=== PATIENT | female | born 1945 | race Caucasian/White ===

== ENCOUNTER 2017-07-05 22:14 | Inpatient (IN) | payer MEDICARE, MEDICAID ==
[~2017-07-05] VITALS: Ht 160 cm; Wt 48.8 kg
[~2017-07-05 22:14] MED LIST: ADV50250 IH; ALBU8.5H4 IH; AMIO200T57 PO; BENZ-49; CLON-286 PO; DEXL60CA3 PO; DILT240C PO; FURO-150 PO; HYDR-3972 PO; IPRA3AMP9 NEB; LIDO700A32 TOP; MUPI22OI30 TP; OXYB10TA PO; POTA10TA15 PO; RIVA20TA PO
[2017-07-05 22:51] LABS: BASOPHILS % (AUTO) 0 % (0-1); EOSINOPHILS # (AUTO) 0.4 X10'3 (0-0.9); EOSINOPHILS % (AUTO) 1.2 % (0-6); HEMATOCRIT 32.7 % (35.0-45.0); HEMOGLOBIN 10.4 g/dl (12.0-16.0); LYMPHOCYTES # (AUTO) 1.4 X10'3 (1.1-4.8); LYMPHOCYTES % (AUTO) 4.8 % (21-51); MEAN CORPUSCULAR HEMOGLOBIN 23.1 PG (27.0-31.0); MEAN CORPUSCULAR HGB CONC 31.7 % (33.0-36.5); MEAN CORPUSCULAR VOLUME 72.9 FL (78-98); MEAN PLATELET VOLUME 8.3 FL (7.4-10.4); MONOCYTES # (AUTO) 1.7 X10'3 (0-0.9); MONOCYTES % (AUTO) 5.8 % (2-12); NEUTROPHILS % (AUTO) 88.2 % (42-75); PLATELET COUNT 363 X10'3 (140-440); RED BLOOD COUNT 4.49 X10'6 (4.20-5.60); RED CELL DISTRIBUTION WIDTH 19.4 % (11.5-14.5)
[2017-07-05 23:06] LABS: INR 1.7 INR; PARTIAL THROMBOPLASTIN TIME 47 SECONDS (22-32)
[2017-07-05 23:08] LABS: WHITE BLOOD COUNT 29.5 X10'3 (4.5-11.0)
[2017-07-05 23:13] LABS: ALANINE AMINOTRANSFERASE 52 U/L (12-78); ALBUMIN 3.1 G/DL (3.4-5.0); ALBUMIN/GLOBULIN RATIO 0.7 (1.1-1.5); ALKALINE PHOSPHATASE 123 IU/L (46-116); ANION GAP 10 (8-16); ASPARTATE AMINO TRANSFERASE 61 U/L (10-37); BILIRUBIN,TOTAL 0.6 MG/DL (0.1-1.0); BLOOD UREA NITROGEN 25 MG/DL (7-18); BUN/CREATININE RATIO 26.3 (6.6-38.0); CALCIUM 9.2 MG/DL (8.5-10.1); CHLORIDE 100 MMOL/L (99-107); CREATININE 0.95 MG/DL (0.40-0.90); POTASSIUM 3.8 MMOL/L (3.5-5.1); SODIUM 137 MMOL/L (135-145); TOTAL CARBON DIOXIDE 27.5 MMOL/L (24-32); TOTAL PROTEIN 7.6 G/DL (6.4-8.2); eGFR 58 ML/MIN
[2017-07-05] MEDS ORDERED: dexamethasone sod phosphate 10mg/ml inj IV STA (23:13)
[2017-07-05] MEDS ORDERED: ipratropium/albuterol 3ml nebule NEB ONE (23:15)
[2017-07-05 23:18] LABS: TOTAL CELLS COUNTED 100
[2017-07-05 23:20] LABS: PLATELET ESTIMATE NORMAL
[2017-07-05 23:21] LABS: ANISOCYTOSIS 2+; HYPOCHROMASIA 1+; MICROCYTOSIS 1+; POLYCHROMASIA 1+
[2017-07-05 23:36] LABS: GLUCOSE 176 MG/DL (70-104)
[2017-07-05] MEDS ORDERED: acetaminophen 325mg tablet PO ONE (23:50)
[2017-07-05] MEDS ORDERED: azithromycin 250mg tablet PO ONE (23:50)
[2017-07-05] MEDS ORDERED: normal saline 1000ML IV soln IV ONE (23:50)
[2017-07-05] MEDS ORDERED: CefTRIAXone 2gm/D5W 50ml 50 ML IV ONE (23:50)
[2017-07-05 23:53] LABS: MAGNESIUM 1.8 MG/DL (1.5-2.4)
[2017-07-06] MEDS ORDERED: clonazePAM 1mg tablet PO ONE (00:20)
[2017-07-06] MEDS ORDERED: HYDROcodone/acetaminophen 5mg/325mg tablet PO PRN (00:20)
[2017-07-06] MEDS ORDERED: acetaminophen 325mg tablet PO PRN ×2 (00:20)
[2017-07-06] MEDS ORDERED: bisacodyl 10mg suppository rectal RC PRN (00:20)
[2017-07-06] MEDS ORDERED: mag hydrox/Alum hydrox/simeth 30ml oral suspension PO PRN (00:20)
[2017-07-06] MEDS ORDERED: ondansetron/PF 4mg/2ml inj IV PRN (00:20)
[2017-07-06 02:10] VITALS: BP 155/69
[2017-07-06 07:24] VITALS: BP 112/42
[2017-07-06] MEDS ORDERED: clonazePAM 1mg tablet PO SCH (08:00)
[2017-07-06] MEDS ORDERED: ALBUTEROL IH PRN (09:20)
[2017-07-06] MEDS: methylPREDNISolone sod succ 125mg/2ml vial IV SCH ×2 (09:37→16:08)
[2017-07-06] MEDS: rivaroxaban 20mg tablet PO SCH (09:37)
[2017-07-06] MEDS: docusate sod 100mg capsule PO SCH ×2 (09:37→20:14)
[2017-07-06] MEDS: diltiazem CD 120mg capsule (once-daily) PO SCH (09:37)
[2017-07-06] MEDS: clonazePAM 1mg tablet PO SCH ×2 (09:38→20:00)
[2017-07-06] MEDS: oxybutynin 5mg tablet PO SCH ×2 (09:38→20:14)
[2017-07-06] MEDS: amiodarone 200mg tablet PO SCH ×3 (09:38→20:14)
[2017-07-06] MEDS: HYDROcodone/acetaminophen 10/325mg tab PO PRN ×2 (09:44→16:08)
[2017-07-06 11:07] VITALS: BP 129/54
[2017-07-06] MEDS: nicotine 21mg patch - 24 hr TD SCH (11:18)
[2017-07-06] MEDS: Protein Smoothie (high protein) 240ml (8oz) cup PO SCH (17:00)
[2017-07-06] MEDS ORDERED: rivaroxaban 20mg tablet PO SCH (18:00)
[2017-07-06] MEDS: clonazePAM 1mg tablet PO PRN (18:30)
[2017-07-06 19:00] VITALS: BP 134/60
[2017-07-06] MEDS: ipratropium/albuterol 3ml nebule NEB PRN (19:47)
[2017-07-06] MEDS: lactobacillus rhamnosus 10,000 MMU CELLS/CAPSULE PO SCH (20:14)
[2017-07-06] MEDS: azithromycin 250mg tablet PO SCH (21:06)
[2017-07-06] MEDS: CefTRIAXone/D5W-Rocephin 1gm 50 ML IV SCH (21:07)
[2017-07-07] VITALS: BP 125/60
[2017-07-07] MEDS: methylPREDNISolone sod succ 125mg/2ml vial IV SCH ×4 (00:04→23:50)
[2017-07-07] MEDS: HYDROcodone/acetaminophen 10/325mg tab PO PRN ×6 (00:31→23:54)
[2017-07-07 05:12] LABS: BASOPHILS % (AUTO) 0 % (0-1); EOSINOPHILS % (AUTO) 0 % (0-6); HEMATOCRIT 28.7 % (35.0-45.0); LYMPHOCYTES # (AUTO) 0.7 X10'3 (1.1-4.8); LYMPHOCYTES % (AUTO) 3.9 % (21-51); MEAN CORPUSCULAR HGB CONC 31.4 % (33.0-36.5); MEAN CORPUSCULAR VOLUME 73.5 FL (78-98); MEAN PLATELET VOLUME 8.4 FL (7.4-10.4); MONOCYTES # (AUTO) 0.4 X10'3 (0-0.9); MONOCYTES % (AUTO) 2.3 % (2-12); NEUTROPHILS # (AUTO) 15.6 X10'3 (1.8-7.7); NEUTROPHILS % (AUTO) 93.8 % (42-75); PLATELET COUNT 326 X10'3 (140-440); RED BLOOD COUNT 3.91 X10'6 (4.20-5.60); RED CELL DISTRIBUTION WIDTH 19.3 % (11.5-14.5); WHITE BLOOD COUNT 16.6 X10'3 (4.5-11.0)
[2017-07-07 05:45] LABS: ALBUMIN 2.4 G/DL (3.4-5.0); ANION GAP 7 (8-16); BLOOD UREA NITROGEN 21 MG/DL (7-18); BUN/CREATININE RATIO 28.4 (6.6-38.0); CALCIUM 9.1 MG/DL (8.5-10.1); CHLORIDE 107 MMOL/L (99-107); CREATININE 0.74 MG/DL (0.40-0.90); POTASSIUM 4.2 MMOL/L (3.5-5.1); SODIUM 141 MMOL/L (135-145); TOTAL CARBON DIOXIDE 26.7 MMOL/L (24-32); eGFR 78 ML/MIN
[2017-07-07 05:50] LABS: GLUCOSE 159 MG/DL (70-104)
[2017-07-07 07:19] VITALS: BP 139/57
[2017-07-07] MEDS ORDERED: non-formulary drug (Diltiazem HCl (Diltiazem 24Hr ER) 1 CAP) PO SCH (08:00)
[2017-07-07] MEDS ORDERED: mupirocin 2% ointment 22GM TP SCH (08:00)
[2017-07-07] MEDS ORDERED: OXYBUTYNIN CHLORIDE 10 MG PO SCH (08:00)
[2017-07-07] MEDS: amiodarone 200mg tablet PO SCH ×3 (08:00→19:59)
[2017-07-07] MEDS: pantoprazole 40mg Tablet.DR PO SCH (08:12)
[2017-07-07] MEDS: diltiazem CD 120mg capsule (once-daily) PO SCH (08:13)
[2017-07-07] MEDS: oxybutynin 5mg tablet PO SCH ×2 (08:14→20:00)
[2017-07-07] MEDS: lactobacillus rhamnosus 10,000 MMU CELLS/CAPSULE PO SCH ×2 (08:14→19:59)
[2017-07-07] MEDS: rivaroxaban 20mg tablet PO SCH (08:14)
[2017-07-07] MEDS: docusate sod 100mg capsule PO SCH ×2 (08:14→19:59)
[2017-07-07] MEDS: furosemide 20MG tablet PO SCH (08:14)
[2017-07-07] MEDS: clonazePAM 1mg tablet PO SCH (08:15)
[2017-07-07] MEDS: nicotine 21mg patch - 24 hr TD SCH (08:16)
[2017-07-07] MEDS: ipratropium/albuterol 3ml nebule NEB PRN ×2 (08:30→15:56)
[2017-07-07 11:00] VITALS: BP 121/46
[2017-07-07] MEDS ORDERED: glucagon, human recombinant 1mg kit SUBCUT PRN (12:05)
[2017-07-07] MEDS ORDERED: MESSAGE TO PHARMACY PO ONE (12:05)
[2017-07-07] MEDS ORDERED: dextrose ORAL solution 15 GM/59 ML bottle PO PRN ×2 (12:05)
[2017-07-07] MEDS ORDERED: dextrose 50%-water 50ml dispensing syringe IV PRN ×2 (12:05)
[2017-07-07 13:11] LABS: HEMOGLOBIN A1C 6.1 % (4.5-6.2)
[2017-07-07] MEDS: Protein Smoothie (high protein) 240ml (8oz) cup PO SCH (17:00)
[2017-07-07] MEDS: insulin Lispro (HumaLOG) vial - multi-dose SQ SCH (18:50)
[2017-07-07 19:00] VITALS: BP 139/57
[2017-07-07] MEDS: azithromycin 250mg tablet PO SCH (21:12)
[2017-07-07] MEDS: CefTRIAXone/D5W-Rocephin 1gm 50 ML IV SCH (21:12)
[2017-07-07] MEDS: clonazePAM 1mg tablet PO PRN (21:15)
[2017-07-07] MEDS: insulin glargine (Lantus) pen - multi-dose SQ SCH (21:23)
[2017-07-08] VITALS: BP 139/52
[2017-07-08] MEDS: HYDROcodone/acetaminophen 10/325mg tab PO PRN ×5 (03:39→23:51)
[2017-07-08 05:23] LABS: BASOPHILS % (AUTO) 0 % (0-1); EOSINOPHILS # (AUTO) 0.2 X10'3 (0-0.9); EOSINOPHILS % (AUTO) 1.5 % (0-6); HEMATOCRIT 28.6 % (35.0-45.0); LYMPHOCYTES # (AUTO) 0.7 X10'3 (1.1-4.8); LYMPHOCYTES % (AUTO) 4.5 % (21-51); MEAN CORPUSCULAR HGB CONC 31.6 % (33.0-36.5); MEAN CORPUSCULAR VOLUME 72.9 FL (78-98); MEAN PLATELET VOLUME 8.1 FL (7.4-10.4); MONOCYTES # (AUTO) 0.3 X10'3 (0-0.9); MONOCYTES % (AUTO) 1.6 % (2-12); NEUTROPHILS # (AUTO) 15.1 X10'3 (1.8-7.7); NEUTROPHILS % (AUTO) 92.4 % (42-75); PLATELET COUNT 354 X10'3 (140-440); RED BLOOD COUNT 3.92 X10'6 (4.20-5.60); RED CELL DISTRIBUTION WIDTH 19.5 % (11.5-14.5); WHITE BLOOD COUNT 16.3 X10'3 (4.5-11.0)
[2017-07-08 05:30] LABS: ALBUMIN 2.3 G/DL (3.4-5.0); ANION GAP 8 (8-16); BLOOD UREA NITROGEN 25 MG/DL (7-18); BUN/CREATININE RATIO 32.5 (6.6-38.0); CALCIUM 9.2 MG/DL (8.5-10.1); CHLORIDE 105 MMOL/L (99-107); CREATININE 0.77 MG/DL (0.40-0.90); POTASSIUM 4.3 MMOL/L (3.5-5.1); SODIUM 140 MMOL/L (135-145); TOTAL CARBON DIOXIDE 27.1 MMOL/L (24-32); eGFR 74 ML/MIN
[2017-07-08 05:31] LABS: GLUCOSE 138 MG/DL (70-104)
[2017-07-08 07:09] VITALS: BP 134/90
[2017-07-08] MEDS: pantoprazole 40mg Tablet.DR PO SCH (07:50)
[2017-07-08] MEDS: lactobacillus rhamnosus 10,000 MMU CELLS/CAPSULE PO SCH ×2 (07:50→20:18)
[2017-07-08] MEDS: ipratropium/albuterol 3ml nebule NEB PRN ×3 (07:50→19:22)
[2017-07-08] MEDS: docusate sod 100mg capsule PO SCH ×2 (07:50→20:19)
[2017-07-08] MEDS: diltiazem CD 120mg capsule (once-daily) PO SCH (07:50)
[2017-07-08] MEDS: oxybutynin 5mg tablet PO SCH ×2 (07:51→20:19)
[2017-07-08] MEDS: furosemide 20MG tablet PO SCH (07:51)
[2017-07-08] MEDS: amiodarone 200mg tablet PO SCH ×2 (07:51→20:19)
[2017-07-08] MEDS: rivaroxaban 20mg tablet PO SCH (07:51)
[2017-07-08] MEDS: nicotine 21mg patch - 24 hr TD SCH (07:52)
[2017-07-08] MEDS: methylPREDNISolone sod succ 125mg/2ml vial IV SCH ×3 (07:52→23:46)
[2017-07-08] MEDS: insulin Lispro (HumaLOG) vial - multi-dose SQ SCH ×3 (08:55→18:57)
[2017-07-08 12:04] VITALS: BP 129/50
[2017-07-08] MEDS: magnesium hydroxide 30ml (MOM) UD suspension PO PRN (16:49)
[2017-07-08] MEDS: Protein Smoothie (high protein) 240ml (8oz) cup PO SCH (17:00)
[2017-07-08 19:00] VITALS: BP 116/47
[2017-07-08] MEDS: CefTRIAXone/D5W-Rocephin 1gm 50 ML IV SCH (20:56)
[2017-07-08] MEDS: azithromycin 250mg tablet PO SCH (20:56)
[2017-07-08] MEDS: insulin glargine (Lantus) pen - multi-dose SQ SCH (21:01)
[2017-07-09] VITALS: BP 111/55
[2017-07-09] MEDS: HYDROcodone/acetaminophen 10/325mg tab PO PRN ×5 (04:45→23:18)
[2017-07-09 06:12] LABS: BASOPHILS % (AUTO) 0.1 % (0-1); EOSINOPHILS # (AUTO) 0.2 X10'3 (0-0.9); EOSINOPHILS % (AUTO) 1.1 % (0-6); HEMATOCRIT 29.8 % (35.0-45.0); HEMOGLOBIN 9.3 g/dl (12.0-16.0); LYMPHOCYTES # (AUTO) 0.7 X10'3 (1.1-4.8); LYMPHOCYTES % (AUTO) 4.7 % (21-51); MEAN CORPUSCULAR HEMOGLOBIN 22.7 PG (27.0-31.0); MEAN CORPUSCULAR HGB CONC 31.3 % (33.0-36.5); MEAN CORPUSCULAR VOLUME 72.4 FL (78-98); MONOCYTES # (AUTO) 0.4 X10'3 (0-0.9); MONOCYTES % (AUTO) 2.8 % (2-12); NEUTROPHILS # (AUTO) 13.4 X10'3 (1.8-7.7); NEUTROPHILS % (AUTO) 91.3 % (42-75); PLATELET COUNT 353 X10'3 (140-440); RED BLOOD COUNT 4.12 X10'6 (4.20-5.60); RED CELL DISTRIBUTION WIDTH 19.2 % (11.5-14.5); WHITE BLOOD COUNT 14.7 X10'3 (4.5-11.0)
[2017-07-09 06:21] LABS: ALBUMIN 2.4 G/DL (3.4-5.0); ANION GAP 8 (8-16); BLOOD UREA NITROGEN 29 MG/DL (7-18); BUN/CREATININE RATIO 37.7 (6.6-38.0); CHLORIDE 104 MMOL/L (99-107); CREATININE 0.77 MG/DL (0.40-0.90); POTASSIUM 4.3 MMOL/L (3.5-5.1); SODIUM 140 MMOL/L (135-145); TOTAL CARBON DIOXIDE 28.2 MMOL/L (24-32); eGFR 74 ML/MIN
[2017-07-09 06:22] LABS: GLUCOSE 130 MG/DL (70-104)
[2017-07-09 08:00] VITALS: BP 126/51
[2017-07-09] MEDS: insulin Lispro (HumaLOG) vial - multi-dose SQ SCH ×3 (08:57→18:59)
[2017-07-09] MEDS: nicotine 21mg patch - 24 hr TD SCH (09:00)
[2017-07-09] MEDS: magnesium hydroxide 30ml (MOM) UD suspension PO PRN (09:00)
[2017-07-09] MEDS: methylPREDNISolone sod succ 125mg/2ml vial IV SCH ×2 (09:02→16:32)
[2017-07-09] MEDS: diltiazem CD 120mg capsule (once-daily) PO SCH (09:04)
[2017-07-09] MEDS: amiodarone 200mg tablet PO SCH ×2 (09:04→20:01)
[2017-07-09] MEDS: oxybutynin 5mg tablet PO SCH ×2 (09:04→20:03)
[2017-07-09] MEDS: rivaroxaban 20mg tablet PO SCH (09:04)
[2017-07-09] MEDS: furosemide 20MG tablet PO SCH (09:04)
[2017-07-09] MEDS: lactobacillus rhamnosus 10,000 MMU CELLS/CAPSULE PO SCH ×2 (09:04→20:01)
[2017-07-09] MEDS: pantoprazole 40mg Tablet.DR PO SCH (09:05)
[2017-07-09] MEDS: docusate sod 100mg capsule PO SCH ×2 (09:08→19:59)
[2017-07-09] MEDS: ipratropium/albuterol 3ml nebule NEB PRN ×2 (09:25→15:21)
[2017-07-09 11:28] VITALS: BP 147/60
[2017-07-09 12:27] VITALS: BP 133/59
[2017-07-09] MEDS: Protein Smoothie (high protein) 240ml (8oz) cup PO SCH (17:49)
[2017-07-09 19:00] VITALS: BP 141/53
[2017-07-09] MEDS: azithromycin 250mg tablet PO SCH (20:01)
[2017-07-09] MEDS: CefTRIAXone/D5W-Rocephin 1gm 50 ML IV SCH (20:03)
[2017-07-09] MEDS ORDERED: bisacodyl 10mg suppository rectal RC PRN (21:00)
[2017-07-09] MEDS: insulin glargine (Lantus) pen - multi-dose SQ SCH (21:38)
[2017-07-09] MEDS: clonazePAM 1mg tablet PO PRN (23:18)
[2017-07-09] MEDS: methylPREDNISolone sod succ/PF 40mg inj. IV SCH (23:19)
[2017-07-09 23:33] VITALS: BP 169/65
[2017-07-10 03:00] LABS: CLARITY,URINE CLOUDY (Clear); GLUCOSE, URINE NEGATIVE (Neg); KETONES,URINE NEGATIVE (Neg); LEUKOCYTE ESTERASE ,URINE SMALL (Neg); NITRITES, URINE NEGATIVE (Neg); OCCULT BLOOD,URINE LARGE (Neg); PH,URINE 5.5 (4.8-8.0); PROTEIN,URINE 30 mg/dl (Neg); UROBILINOGEN,URINE 0.2 E.U/dL (0.2-1.0)
[2017-07-10 03:05] LABS: COLOR,URINE Pink (Yellow); UA COLLECTION TYPE FOLEY CATH
[2017-07-10 03:08] LABS: RBC,URINE TNTC /HPF (0-2)
[2017-07-10 03:09] LABS: BACTERIA,URINE FEW /HPF (Neg); SQUAMOUS EPITHELIAL CELL,UR FEW /LPF (FEW); YEAST FEW /HPF (NEGATIVE)
[2017-07-10] MEDS: HYDROcodone/acetaminophen 10/325mg tab PO PRN ×4 (03:42→22:04)
[2017-07-10 05:16] LABS: BASOPHILS % (AUTO) 0 % (0-1); EOSINOPHILS # (AUTO) 0.1 X10'3 (0-0.9); EOSINOPHILS % (AUTO) 0.6 % (0-6); HEMATOCRIT 31.4 % (35.0-45.0); HEMOGLOBIN 9.9 g/dl (12.0-16.0); LYMPHOCYTES # (AUTO) 1.1 X10'3 (1.1-4.8); LYMPHOCYTES % (AUTO) 6.1 % (21-51); MEAN CORPUSCULAR HEMOGLOBIN 22.9 PG (27.0-31.0); MEAN CORPUSCULAR HGB CONC 31.4 % (33.0-36.5); MEAN CORPUSCULAR VOLUME 72.8 FL (78-98); MEAN PLATELET VOLUME 8.2 FL (7.4-10.4); MONOCYTES # (AUTO) 0.6 X10'3 (0-0.9); MONOCYTES % (AUTO) 3.2 % (2-12); NEUTROPHILS # (AUTO) 16.7 X10'3 (1.8-7.7); NEUTROPHILS % (AUTO) 90.1 % (42-75); PLATELET COUNT 351 X10'3 (140-440); RED BLOOD COUNT 4.31 X10'6 (4.20-5.60); RED CELL DISTRIBUTION WIDTH 19.3 % (11.5-14.5); WHITE BLOOD COUNT 18.5 X10'3 (4.5-11.0)
[2017-07-10 06:02] LABS: ALBUMIN 2.3 G/DL (3.4-5.0); ANION GAP 5 (8-16); BLOOD UREA NITROGEN 36 MG/DL (7-18); BUN/CREATININE RATIO 41.4 (6.6-38.0); CALCIUM 8.9 MG/DL (8.5-10.1); CHLORIDE 104 MMOL/L (99-107); CREATININE 0.87 MG/DL (0.40-0.90); POTASSIUM 4.3 MMOL/L (3.5-5.1); SODIUM 141 MMOL/L (135-145); TOTAL CARBON DIOXIDE 31.6 MMOL/L (24-32); eGFR 64 ML/MIN
[2017-07-10 06:04] LABS: GLUCOSE 108 MG/DL (70-104)
[2017-07-10] MEDS: methylPREDNISolone sod succ/PF 40mg inj. IV SCH ×2 (06:59→19:43)
[2017-07-10 07:00] VITALS: BP 145/57
[2017-07-10] MEDS: amiodarone 200mg tablet PO SCH ×2 (07:00→19:42)
[2017-07-10] MEDS: pantoprazole 40mg Tablet.DR PO SCH (07:00)
[2017-07-10] MEDS: lactobacillus rhamnosus 10,000 MMU CELLS/CAPSULE PO SCH ×2 (07:01→19:42)
[2017-07-10] MEDS: furosemide 20MG tablet PO SCH (07:01)
[2017-07-10] MEDS: rivaroxaban 20mg tablet PO SCH (07:01)
[2017-07-10] MEDS: docusate sod 100mg capsule PO SCH ×2 (07:01→19:43)
[2017-07-10] MEDS: oxybutynin 5mg tablet PO SCH ×2 (07:01→19:43)
[2017-07-10] MEDS: diltiazem CD 120mg capsule (once-daily) PO SCH (07:02)
[2017-07-10] MEDS: nicotine 21mg patch - 24 hr TD SCH (07:03)
[2017-07-10] MEDS: insulin Lispro (HumaLOG) vial - multi-dose SQ SCH ×2 (08:39→13:27)
[2017-07-10] MEDS: ipratropium/albuterol 3ml nebule NEB PRN (08:47)
[2017-07-10 11:24] VITALS: BP 122/38
[2017-07-10 11:35] VITALS: BP 123/60
[2017-07-10] MEDS: ferrous sulfate 325mg tablet PO SCH ×2 (13:27→17:30)
[2017-07-10] MEDS: Protein Smoothie (high protein) 240ml (8oz) cup PO SCH (17:25)
[2017-07-10 19:00] VITALS: BP 127/97
[2017-07-10] MEDS: azithromycin 250mg tablet PO SCH (22:05)
[2017-07-10] MEDS: CefTRIAXone/D5W-Rocephin 1gm 50 ML IV SCH (22:05)
[2017-07-10] MEDS: clonazePAM 1mg tablet PO PRN (22:22)
[2017-07-10] MEDS: insulin glargine (Lantus) pen - multi-dose SQ SCH (22:29)
[2017-07-10 23:59] VITALS: BP 130/57
[2017-07-11] MEDS: HYDROcodone/acetaminophen 10/325mg tab PO PRN ×2 (02:48→09:23)
[2017-07-11 05:23] LABS: BASOPHILS % (AUTO) 0.1 % (0-1); EOSINOPHILS # (AUTO) 0.1 X10'3 (0-0.9); EOSINOPHILS % (AUTO) 0.7 % (0-6); HEMOGLOBIN 9.6 g/dl (12.0-16.0); LYMPHOCYTES % (AUTO) 5.7 % (21-51); MEAN CORPUSCULAR HEMOGLOBIN 22.6 PG (27.0-31.0); MEAN CORPUSCULAR VOLUME 73.1 FL (78-98); MEAN PLATELET VOLUME 8.3 FL (7.4-10.4); MONOCYTES # (AUTO) 0.4 X10'3 (0-0.9); MONOCYTES % (AUTO) 2.5 % (2-12); NEUTROPHILS # (AUTO) 16.4 X10'3 (1.8-7.7); PLATELET COUNT 325 X10'3 (140-440); RED BLOOD COUNT 4.25 X10'6 (4.20-5.60); RED CELL DISTRIBUTION WIDTH 19.5 % (11.5-14.5)
[2017-07-11 05:57] LABS: ALBUMIN 2.2 G/DL (3.4-5.0); ANION GAP 4 (8-16); BLOOD UREA NITROGEN 36 MG/DL (7-18); BUN/CREATININE RATIO 39.1 (6.6-38.0); CALCIUM 8.8 MG/DL (8.5-10.1); CHLORIDE 103 MMOL/L (99-107); CREATININE 0.92 MG/DL (0.40-0.90); POTASSIUM 4.9 MMOL/L (3.5-5.1); SODIUM 141 MMOL/L (135-145); TOTAL CARBON DIOXIDE 34.2 MMOL/L (24-32); eGFR 60 ML/MIN
[2017-07-11 05:59] LABS: GLUCOSE 111 MG/DL (70-104)
[2017-07-11] MEDS: ipratropium/albuterol 3ml nebule NEB PRN (07:15)
[2017-07-11 08:00] VITALS: BP 116/45
[2017-07-11] MEDS: nicotine 21mg patch - 24 hr TD SCH (09:22)
[2017-07-11] MEDS: furosemide 20MG tablet PO SCH (09:23)
[2017-07-11] MEDS: methylPREDNISolone sod succ/PF 40mg inj. IV SCH (09:23)
[2017-07-11] MEDS: docusate sod 100mg capsule PO SCH (09:23)
[2017-07-11] MEDS: lactobacillus rhamnosus 10,000 MMU CELLS/CAPSULE PO SCH (09:23)
[2017-07-11] MEDS: ferrous sulfate 325mg tablet PO SCH ×2 (09:23→12:36)
[2017-07-11] MEDS: amiodarone 200mg tablet PO SCH (09:23)
[2017-07-11] MEDS: rivaroxaban 20mg tablet PO SCH (09:24)
[2017-07-11] MEDS: pantoprazole 40mg Tablet.DR PO SCH (09:24)
[2017-07-11] MEDS: diltiazem CD 120mg capsule (once-daily) PO SCH (09:24)
[2017-07-11] MEDS: Protein Smoothie (high protein) 240ml (8oz) cup PO SCH (09:24)
[2017-07-11] MEDS: oxybutynin 5mg tablet PO SCH (09:24)
[2017-07-11] MEDS: insulin Lispro (HumaLOG) vial - multi-dose SQ SCH (10:26)
[2017-07-11 11:00] VITALS: BP 131/71
[2017-07-11] MEDS ORDERED: PRED10TA23 PO (11:04)
[2017-07-11] MEDS ORDERED: LEVO500T2 PO (11:04)
[2017-07-11] MEDS ORDERED: NICO-687 TOP (14:39)
== END 2017-07-11 15:10 | disposition home or self-care (01) | DRG 871 ==
LOC: ER 22:15 → SUR 3N 07-06 00:20 → CMPBEDREQ 07-09 19:48
PROVIDERS: ADMIT Family Medicine; ATTEND Family Medicine
DX: A41.9 Sepsis, unspecified organism (principal); J14 Pneumonia due to Hemophilus influenzae; J96.21 Acute and chronic respiratory failure with hypoxia; I11.0 Hypertensive heart disease with heart failure; I48.2 Chronic atrial fibrillation; I50.9 Heart failure, unspecified; E11.65 Type 2 diabetes mellitus with hyperglycemia; J44.0 Chronic obstructive pulmonary disease with (acute) lower respiratory infection; J44.1 Chronic obstructive pulmonary disease with (acute) exacerbation; Z68.1 Body mass index [BMI] 19.9 or less, adult; D64.9 Anemia, unspecified; T38.0X5A Adverse effect of glucocorticoids and synthetic analogues, initial encounter; F17.210 Nicotine dependence, cigarettes, uncomplicated; N28.9 Disorder of kidney and ureter, unspecified; Y92.238 Other place in hospital as the place of occurrence of the external cause; Z86.73 Personal history of transient ischemic attack (TIA), and cerebral infarction without residual deficits; Z87.11 Personal history of peptic ulcer disease; Z90.710 Acquired absence of both cervix and uterus; Z91.041 Radiographic dye allergy status; Z88.0 Allergy status to penicillin; Z91.048 Other nonmedicinal substance allergy status
CPT/HCPCS: 36415; 71045; 80048; 80053; 81001; 82948; 83036; 83605; 83735; 83880; 84145; 84439; 84443; 84484; 85025; 85610; 85730; 87040; 87070; 87077; 87088; 87185; 93005; 94640; 94760; 96360; 97116; 97162; 97530; 99291; A4315; A4353; A6212; A6213; A6258; J0696; J1100; J1815; J2920; J2930

== ENCOUNTER 2017-08-13 09:30 | Outpatient (CLI) | payer MEDICARE, MEDICAID ==
[2017-08-13] MEDS ORDERED: silver sulfadiazine cream 50gm TP ONE ×2 (11:38→12:13)
== END 2017-08-13 12:35 | disposition home or self-care (01) ==
LOC: WOUND CARE 09:30
PROVIDERS: ATTEND Surgery
DX: E11.622 Type 2 diabetes mellitus with other skin ulcer (principal); L97.821 Non-pressure chronic ulcer of other part of left lower leg limited to breakdown of skin; L97.811 Non-pressure chronic ulcer of other part of right lower leg limited to breakdown of skin; E11.65 Type 2 diabetes mellitus with hyperglycemia; I77.1 Stricture of artery; J44.1 Chronic obstructive pulmonary disease with (acute) exacerbation; I25.10 Atherosclerotic heart disease of native coronary artery without angina pectoris; K21.9 Gastro-esophageal reflux disease without esophagitis; I11.0 Hypertensive heart disease with heart failure; I50.9 Heart failure, unspecified; I48.2 Chronic atrial fibrillation; F17.210 Nicotine dependence, cigarettes, uncomplicated; Z86.718 Personal history of other venous thrombosis and embolism; Z90.710 Acquired absence of both cervix and uterus; Z86.711 Personal history of pulmonary embolism; Z86.73 Personal history of transient ischemic attack (TIA), and cerebral infarction without residual deficits
CPT/HCPCS: 99215; A6223

== ENCOUNTER 2018-05-03 08:40 | Day surgery (SDC) | payer MEDICARE, MEDICAID ==
[~2018-05-03 08:40] MED LIST changes: +AMIO200T54 PO; -AMIO200T57 PO
[2018-05-03] MEDS ORDERED: LIDOcaine/PRILOcaine 5gm cream TP ONE (09:37)
--- NOTE | 2018-05-03 12:10 | NUR ---
Patient ambulated independently with a walker. Patient admitted to outpatient wound care clinic for return visit with physician. Dressing removed, wound cleansed and Emla cream applied per order. Patient assessed amd medications and medical history reviewed. Dr. Alberto at bedside accompanied by RN. Wound assessed, time out performed by MD/RN. Wound debrided as detailed in the physician progress/procedure note. Plan of care discussed with patient. Dressings placed per MD orders. Patient instructed on the signs and symptoms of infection and to call the Wound Center if any occur or to go to the ED if we are closed: Increased pain in wound Increase in drainage from the wound Redness in the skin surrounding the wound Bleeding from the wound Temperature of 101 or greater Patient instructed that the weight of their body puts a large amount of pressure on their wounds. This pressure keeps the new tissue from growing and inhibits new blood vessels from forming. Explained that, if they continue to bear weight on a body part that has a wound, the time it takes to heal the wound increases, the wound may get worse or the wound may not heal at all. Patient verbalized understanding of all discharge instructions and plan of care and ambulated independently out to lobby in stable condition with no sign or symptom of distress at time of discharge. Addendum: 05/03/18 at 1213 by Joyce Moses RN Amended: Links added.
== END 2018-05-03 10:44 | disposition home or self-care (01) ==
LOC: WOUND CARE 08:40
PROVIDERS: ATTEND Surgery
DX: E11.622 Type 2 diabetes mellitus with other skin ulcer (principal); L97.822 Non-pressure chronic ulcer of other part of left lower leg with fat layer exposed; I77.1 Stricture of artery; J44.1 Chronic obstructive pulmonary disease with (acute) exacerbation; I25.10 Atherosclerotic heart disease of native coronary artery without angina pectoris; K21.9 Gastro-esophageal reflux disease without esophagitis; I11.0 Hypertensive heart disease with heart failure; I50.9 Heart failure, unspecified; I48.2 Chronic atrial fibrillation; F17.210 Nicotine dependence, cigarettes, uncomplicated; Z86.718 Personal history of other venous thrombosis and embolism; Z90.710 Acquired absence of both cervix and uterus; Z86.711 Personal history of pulmonary embolism; Z86.73 Personal history of transient ischemic attack (TIA), and cerebral infarction without residual deficits
CPT/HCPCS: 87070; 87075; 87077; 87102; 87186; A6021; A6206; A6213

== ENCOUNTER 2018-05-10 10:11 | Day surgery (SDC) | payer MEDICARE, MEDICAID ==
[2018-05-10] MEDS ORDERED: LIDOcaine/PRILOcaine 5gm cream TP ONE (10:25)
--- NOTE | 2018-05-10 14:39 | NUR ---
Patient ambulated independently from [facility] and was admitted to outpatient wound care for physician visit with Fan Alberto MD. Dressing removed, wound cleansed and Emla cream applied per order. Patient assessed for changes in conditions, medications and medical history. Dr. Alberto at bedside accompanied by RN. Wound assessed, time out performed by MD/RN. Wound debrided as detailed in the physician progress/procedure note. Plan of care discussed with patient. Ultra sound performed at bedside. Dressings placed per MD orders. Patient instructed on the signs and symptoms of infection and to call the Wound Center if any occur or to go to the ED if we are closed: Increased pain in wound Increase in drainage from the wound Redness in the skin surrounding the wound Bleeding from the wound Temperature of 101 or greater Patient instructed that the weight of their body puts a large amount of pressure on their wounds. This pressure keeps the new tissue from growing and inhibits new blood vessels from forming. Explained that, if they continue to bear weight on a body part that has a wound, the time it takes to heal the wound increases, the wound may get worse or the wound may not heal at all. Patient verbalized understanding of all discharge instructions and plan of care and ambulated independently out to [facility] in stable condition with no sign or symptom of distress at time of discharge. Addendum: 05/10/18 at 1441 by Joyce Moses RN Amended: Links added.
== END 2018-05-10 12:24 | disposition home or self-care (01) ==
LOC: WOUND CARE 10:11
PROVIDERS: ATTEND Surgery
DX: E11.622 Type 2 diabetes mellitus with other skin ulcer (principal); L97.822 Non-pressure chronic ulcer of other part of left lower leg with fat layer exposed; I77.1 Stricture of artery; J44.1 Chronic obstructive pulmonary disease with (acute) exacerbation; I25.10 Atherosclerotic heart disease of native coronary artery without angina pectoris; K21.9 Gastro-esophageal reflux disease without esophagitis; I11.0 Hypertensive heart disease with heart failure; I50.9 Heart failure, unspecified; I48.2 Chronic atrial fibrillation; F17.210 Nicotine dependence, cigarettes, uncomplicated; Z86.718 Personal history of other venous thrombosis and embolism; Z90.710 Acquired absence of both cervix and uterus; Z86.711 Personal history of pulmonary embolism; Z86.73 Personal history of transient ischemic attack (TIA), and cerebral infarction without residual deficits
CPT/HCPCS: 93922; 93926; 97597; A6222; A6021; A6212; A6446

== ENCOUNTER 2018-05-17 10:30 | Day surgery (SDC) | payer MEDICARE, MEDICAID ==
[~2018-05-17 10:30] MED LIST changes: -BENZ-49; -IPRA3AMP9 NEB; -LIDO700A32 TOP; -MUPI22OI30 TP
[2018-05-17] MEDS ORDERED: LIDOcaine/PRILOcaine 5gm cream TP ONE (11:13)
--- NOTE | 2018-05-17 12:15 | NUR ---
Patient ambulated with walker from [facility] and was admitted to outpatient wound care for physician visit with Fan Alberto MD. Dressing removed, wound cleansed and Emla cream applied per order. Patient assessed for changes in conditions, medications and medical history. 1125 - Dr. Alberto at bedside accompanied by RN. Wound assessed, time out performed by MD/RN. Wound debrided as detailed in the physician progress/procedure note. Plan of care discussed with patient. Dressings placed per MD orders. Patient instructed on the signs and symptoms of infection and to call the Wound Center if any occur or to go to the ED if we are closed: Increased pain in wound Increase in drainage from the wound Redness in the skin surrounding the wound Bleeding from the wound Temperature of 101 or greater Patient instructed that the weight of their body puts a large amount of pressure on their wounds. This pressure keeps the new tissue from growing and inhibits new blood vessels from forming. Explained that, if they continue to bear weight on a body part that has a wound, the time it takes to heal the wound increases, the wound may get worse or the wound may not heal at all. Patient verbalized understanding of all discharge instructions and plan of care and ambulated with walker out to [facility] in stable condition with no sign or symptom of distress at time of discharge.
== END 2018-05-17 11:53 | disposition home or self-care (01) ==
LOC: WOUND CARE 10:30
PROVIDERS: ATTEND Surgery
DX: E11.622 Type 2 diabetes mellitus with other skin ulcer (principal); I70.242 Atherosclerosis of native arteries of left leg with ulceration of calf; L97.221 Non-pressure chronic ulcer of left calf limited to breakdown of skin; L97.822 Non-pressure chronic ulcer of other part of left lower leg with fat layer exposed; I77.1 Stricture of artery; J44.1 Chronic obstructive pulmonary disease with (acute) exacerbation; I25.10 Atherosclerotic heart disease of native coronary artery without angina pectoris; K21.9 Gastro-esophageal reflux disease without esophagitis; I11.0 Hypertensive heart disease with heart failure; I50.9 Heart failure, unspecified; I48.2 Chronic atrial fibrillation; F17.210 Nicotine dependence, cigarettes, uncomplicated; Z86.718 Personal history of other venous thrombosis and embolism; Z90.710 Acquired absence of both cervix and uterus; Z86.711 Personal history of pulmonary embolism; Z86.73 Personal history of transient ischemic attack (TIA), and cerebral infarction without residual deficits
CPT/HCPCS: 97597; A6021; A6206; A6212

== ENCOUNTER 2018-05-24 09:50 | Day surgery (SDC) | payer MEDICARE, MEDICAID ==
[2018-05-24] MEDS ORDERED: LIDOcaine/PRILOcaine 5gm cream TP ONE (10:16)
--- NOTE | 2018-05-24 12:34 | NUR ---
Patient ambulated independently from lobby with a walker. Patient admitted to outpatient wound care for physician visit with Fan Alberto MD. Dressing removed, wound cleansed and Emla cream applied per order. Patient assessed for changes in conditions, medications and medical history. Dr. Alberto at bedside accompanied by RN. Wound assessed, time out performed by MD/RN. Wound debrided as detailed in the physician progress/procedure note. Plan of care discussed with patient. Dressings placed per MD orders. Patient instructed on the signs and symptoms of infection and to call the Wound Center if any occur or to go to the ED if we are closed: Increased pain in wound Increase in drainage from the wound Redness in the skin surrounding the wound Bleeding from the wound Temperature of 101 or greater Patient instructed that the weight of their body puts a large amount of pressure on their wounds. This pressure keeps the new tissue from growing and inhibits new blood vessels from forming. Explained that, if they continue to bear weight on a body part that has a wound, the time it takes to heal the wound increases, the wound may get worse or the wound may not heal at all. Patient verbalized understanding of all discharge instructions and plan of care and ambulated independently out to lobby in stable condition with no sign or symptom of distress at time of discharge. Addendum: 05/24/18 at 1236 by Joyce Moses RN Amended: Links added.
== END 2018-05-24 11:10 | disposition home or self-care (01) ==
LOC: WOUND CARE 09:50
PROVIDERS: ATTEND Surgery
DX: E11.622 Type 2 diabetes mellitus with other skin ulcer (principal); I70.242 Atherosclerosis of native arteries of left leg with ulceration of calf; L97.221 Non-pressure chronic ulcer of left calf limited to breakdown of skin; L97.822 Non-pressure chronic ulcer of other part of left lower leg with fat layer exposed; I77.1 Stricture of artery; J44.1 Chronic obstructive pulmonary disease with (acute) exacerbation; I25.10 Atherosclerotic heart disease of native coronary artery without angina pectoris; K21.9 Gastro-esophageal reflux disease without esophagitis; I11.0 Hypertensive heart disease with heart failure; I50.9 Heart failure, unspecified; I48.2 Chronic atrial fibrillation; F17.210 Nicotine dependence, cigarettes, uncomplicated; Z86.718 Personal history of other venous thrombosis and embolism; Z90.710 Acquired absence of both cervix and uterus; Z86.711 Personal history of pulmonary embolism; Z86.73 Personal history of transient ischemic attack (TIA), and cerebral infarction without residual deficits
CPT/HCPCS: 15271; A6209; A6222; Q4101; A6250; A6446

== ENCOUNTER 2018-05-31 09:15 | Outpatient (CLI) | payer MEDICARE, MEDICAID ==
--- NOTE | 2018-05-31 13:10 | NUR ---
Patient ambulated independently from [facility] and was admitted to outpatient wound care for physician visit with Fan Alberto MD. Dressing removed and wound cleansed. Patient assessed for changes in conditions, medications and medical history. Dr. Alberto at bedside accompanied by RN. Wound assessed and no debridement was done. Plan of care discussed with patient. Dressings placed per MD orders. Patient instructed on the signs and symptoms of infection and to call the Wound Center if any occur or to go to the ED if we are closed: Increased pain in wound Increase in drainage from the wound Redness in the skin surrounding the wound Bleeding from the wound Temperature of 101 or greater Patient instructed that the weight of their body puts a large amount of pressure on their wounds. This pressure keeps the new tissue from growing and inhibits new blood vessels from forming. Explained that, if they continue to bear weight on a body part that has a wound, the time it takes to heal the wound increases, the wound may get worse or the wound may not heal at all. Patient verbalized understanding of all discharge instructions and plan of care and ambulated independently out to [facility] in stable condition with no sign or symptom of distress at time of discharge. Addendum: 05/31/18 at 1312 by Joyce Moses RN Amended: Links added.
== END 2018-05-31 12:05 | disposition home or self-care (01) ==
LOC: WOUND CARE 09:15 → EDSTATUS 10:00 → WOUND CARE 12:05
PROVIDERS: ATTEND Surgery
DX: E11.622 Type 2 diabetes mellitus with other skin ulcer (principal); I70.242 Atherosclerosis of native arteries of left leg with ulceration of calf; L97.221 Non-pressure chronic ulcer of left calf limited to breakdown of skin; L97.822 Non-pressure chronic ulcer of other part of left lower leg with fat layer exposed; I77.1 Stricture of artery; J44.1 Chronic obstructive pulmonary disease with (acute) exacerbation; I25.10 Atherosclerotic heart disease of native coronary artery without angina pectoris; K21.9 Gastro-esophageal reflux disease without esophagitis; I11.0 Hypertensive heart disease with heart failure; I50.9 Heart failure, unspecified; I48.2 Chronic atrial fibrillation; F17.210 Nicotine dependence, cigarettes, uncomplicated; Z86.718 Personal history of other venous thrombosis and embolism; Z90.710 Acquired absence of both cervix and uterus; Z86.711 Personal history of pulmonary embolism; Z86.73 Personal history of transient ischemic attack (TIA), and cerebral infarction without residual deficits
CPT/HCPCS: A6222; G0463; A6213

== ENCOUNTER 2018-06-07 10:05 | Day surgery (SDC) | payer MEDICARE, MEDICAID ==
[2018-06-07] MEDS ORDERED: LIDOcaine/PRILOcaine 5gm cream TP ONE (11:06)
--- NOTE | 2018-06-07 14:42 | NUR ---
Patient ambulated independently from lobby with a walker. Patient admitted to outpatient wound care for physician visit with Fan Alberto MD. Dressing removed, wound cleansed and Emla cream applied per order. Patient assessed for changes in conditions, medications and medical history. Dr. Alberto at bedside accompanied by RN. Wound assessed, time out performed by MD/RN. Wound debrided as detailed in the physician progress/procedure note. Plan of care discussed with patient. Dressings placed per MD orders. Patient instructed on the signs and symptoms of infection and to call the Wound Center if any occur or to go to the ED if we are closed: Increased pain in wound Increase in drainage from the wound Redness in the skin surrounding the wound Bleeding from the wound Temperature of 101 or greater Patient instructed that the weight of their body puts a large amount of pressure on their wounds. This pressure keeps the new tissue from growing and inhibits new blood vessels from forming. Explained that, if they continue to bear weight on a body part that has a wound, the time it takes to heal the wound increases, the wound may get worse or the wound may not heal at all. Patient verbalized understanding of all discharge instructions and plan of care and ambulated independently out to lobby in stable condition with no sign or symptom of distress at time of discharge. Addendum: 06/07/18 at 1450 by Joyce Moses RN Amended: Links added.
== END 2018-06-07 11:59 | disposition home or self-care (01) ==
LOC: WOUND CARE 10:05
PROVIDERS: ATTEND Surgery
DX: E11.622 Type 2 diabetes mellitus with other skin ulcer (principal); I70.242 Atherosclerosis of native arteries of left leg with ulceration of calf; L97.221 Non-pressure chronic ulcer of left calf limited to breakdown of skin; L97.822 Non-pressure chronic ulcer of other part of left lower leg with fat layer exposed; I77.1 Stricture of artery; J44.1 Chronic obstructive pulmonary disease with (acute) exacerbation; I25.10 Atherosclerotic heart disease of native coronary artery without angina pectoris; K21.9 Gastro-esophageal reflux disease without esophagitis; I11.0 Hypertensive heart disease with heart failure; I50.9 Heart failure, unspecified; I48.2 Chronic atrial fibrillation; F17.210 Nicotine dependence, cigarettes, uncomplicated; Z86.718 Personal history of other venous thrombosis and embolism; Z90.710 Acquired absence of both cervix and uterus; Z86.711 Personal history of pulmonary embolism; Z86.73 Personal history of transient ischemic attack (TIA), and cerebral infarction without residual deficits
CPT/HCPCS: 15271; A6209; A6222; Q4101; A6250

== ENCOUNTER 2018-06-18 09:40 | Day surgery (SDC) | payer MEDICARE, MEDICAID ==
[2018-06-18] MEDS ORDERED: LIDOcaine/PRILOcaine 5gm cream TP ONE (10:33)
--- NOTE | 2018-06-18 11:04 | NUR ---
Patient ambulated independently from lobby with a walker. Patient admitted to outpatient wound care for physician visit with Fan Alberto MD. Dressing removed, wound cleansed and lidocaine applied per order. Patient assessed for changes in conditions, medications and medical history. Dr. Alberto at bedside accompanied by RN. Wound assessed, time out performed by MD/RN. Wound debrided as detailed in the physician progress/procedure note. Plan of care discussed with patient. Dressings placed per MD orders. Patient instructed on the signs and symptoms of infection and to call the Wound Center if any occur or to go to the ED if we are closed: Increased pain in wound Increase in drainage from the wound Redness in the skin surrounding the wound Bleeding from the wound Temperature of 101 or greater Patient instructed that the weight of their body puts a large amount of pressure on their wounds. This pressure keeps the new tissue from growing and inhibits new blood vessels from forming. Explained that, if they continue to bear weight on a body part that has a wound, the time it takes to heal the wound increases, the wound may get worse or the wound may not heal at all. Patient verbalized understanding of all discharge instructions and plan of care and ambulated independently out to lobby in stable condition with no sign or symptom of distress at time of discharge. Addendum: 06/18/18 at 1105 by Joyce Moses RN Amended: Links added.
== END 2018-06-18 10:53 | disposition home or self-care (01) ==
LOC: WOUND CARE 09:40
PROVIDERS: ATTEND Surgery
DX: E11.622 Type 2 diabetes mellitus with other skin ulcer (principal); I70.242 Atherosclerosis of native arteries of left leg with ulceration of calf; L97.221 Non-pressure chronic ulcer of left calf limited to breakdown of skin; L97.822 Non-pressure chronic ulcer of other part of left lower leg with fat layer exposed; I77.1 Stricture of artery; J44.1 Chronic obstructive pulmonary disease with (acute) exacerbation; I25.10 Atherosclerotic heart disease of native coronary artery without angina pectoris; K21.9 Gastro-esophageal reflux disease without esophagitis; I11.0 Hypertensive heart disease with heart failure; I50.9 Heart failure, unspecified; I48.2 Chronic atrial fibrillation; F17.210 Nicotine dependence, cigarettes, uncomplicated; Z86.718 Personal history of other venous thrombosis and embolism; Z90.710 Acquired absence of both cervix and uterus; Z86.711 Personal history of pulmonary embolism; Z86.73 Personal history of transient ischemic attack (TIA), and cerebral infarction without residual deficits
CPT/HCPCS: 97597; A6206

== ENCOUNTER 2018-06-24 10:20 | Day surgery (SDC) | payer MEDICARE, MEDICAID ==
[2018-06-24] MEDS ORDERED: LIDOcaine/PRILOcaine 5gm cream TP ONE (10:54)
--- NOTE | 2018-06-24 12:00 | NUR ---
Patient ambulated with walker from [facility] and was admitted to outpatient wound care for physician visit with Fan Alberto MD. Dressing removed, wound cleansed and Emla cream applied per order. Patient assessed for changes in conditions, medications and medical history. 1110 - Dr. Alberto at bedside accompanied by RN. Wound assessed, time out performed by MD/RN. Wound debrided as detailed in the physician progress/procedure note. Plan of care discussed with patient. Dressings placed per MD orders. Patient instructed on the signs and symptoms of infection and to call the Wound Center if any occur or to go to the ED if we are closed: Increased pain in wound Increase in drainage from the wound Redness in the skin surrounding the wound Bleeding from the wound Temperature of 101 or greater Patient instructed that the weight of their body puts a large amount of pressure on their wounds. This pressure keeps the new tissue from growing and inhibits new blood vessels from forming. Explained that, if they continue to bear weight on a body part that has a wound, the time it takes to heal the wound increases, the wound may get worse or the wound may not heal at all. Patient verbalized understanding of all discharge instructions and plan of care and ambulated with walker out to [facility] in stable condition with no sign or symptom of distress at time of discharge.
== END 2018-06-24 11:30 | disposition home or self-care (01) ==
LOC: WOUND CARE 10:20
PROVIDERS: ATTEND Surgery
DX: E11.622 Type 2 diabetes mellitus with other skin ulcer (principal); I70.242 Atherosclerosis of native arteries of left leg with ulceration of calf; L97.221 Non-pressure chronic ulcer of left calf limited to breakdown of skin; L97.822 Non-pressure chronic ulcer of other part of left lower leg with fat layer exposed; I77.1 Stricture of artery; J44.1 Chronic obstructive pulmonary disease with (acute) exacerbation; I25.10 Atherosclerotic heart disease of native coronary artery without angina pectoris; K21.9 Gastro-esophageal reflux disease without esophagitis; I11.0 Hypertensive heart disease with heart failure; I50.9 Heart failure, unspecified; I48.2 Chronic atrial fibrillation; F17.210 Nicotine dependence, cigarettes, uncomplicated; Z86.718 Personal history of other venous thrombosis and embolism; Z90.710 Acquired absence of both cervix and uterus; Z86.711 Personal history of pulmonary embolism; Z86.73 Personal history of transient ischemic attack (TIA), and cerebral infarction without residual deficits
CPT/HCPCS: 97597; A6223; A6446

== ENCOUNTER 2018-07-01 10:09 | Day surgery (SDC) | payer MEDICARE, MEDICAID ==
[2018-07-01] MEDS ORDERED: LIDOcaine/PRILOcaine 5gm cream TP ONE (11:13)
--- NOTE | 2018-07-01 12:15 | NUR ---
Patient with walker independently from [facility] and was admitted to outpatient wound care for physician visit with Fan Alberto MD. Dressing removed, wound cleansed and Emla cream applied per order. Patient assessed for changes in conditions, medications and medical history. 1145 - Dr. Alberto at bedside accompanied by RN. Wound assessed, time out performed by MD/RN. Wound debrided and procedure performed as detailed in the physician progress/procedure note. Plan of care discussed with patient. Dressings placed per MD orders. Patient instructed on the signs and symptoms of infection and to call the Wound Center if any occur or to go to the ED if we are closed: Increased pain in wound Increase in drainage from the wound Redness in the skin surrounding the wound Bleeding from the wound Temperature of 101 or greater Patient instructed that the weight of their body puts a large amount of pressure on their wounds. This pressure keeps the new tissue from growing and inhibits new blood vessels from forming. Explained that, if they continue to bear weight on a body part that has a wound, the time it takes to heal the wound increases, the wound may get worse or the wound may not heal at all. Patient verbalized understanding of all discharge instructions and plan of care and ambulated with walker out to [facility] in stable condition with no sign or symptom of distress at time of discharge.
== END 2018-07-01 12:25 | disposition home or self-care (01) ==
LOC: WOUND CARE 10:09
PROVIDERS: ATTEND Surgery
DX: E11.622 Type 2 diabetes mellitus with other skin ulcer (principal); I70.242 Atherosclerosis of native arteries of left leg with ulceration of calf; L97.221 Non-pressure chronic ulcer of left calf limited to breakdown of skin; L97.822 Non-pressure chronic ulcer of other part of left lower leg with fat layer exposed; I77.1 Stricture of artery; J44.1 Chronic obstructive pulmonary disease with (acute) exacerbation; I25.10 Atherosclerotic heart disease of native coronary artery without angina pectoris; K21.9 Gastro-esophageal reflux disease without esophagitis; I11.0 Hypertensive heart disease with heart failure; I50.9 Heart failure, unspecified; I48.2 Chronic atrial fibrillation; F17.210 Nicotine dependence, cigarettes, uncomplicated; Z86.718 Personal history of other venous thrombosis and embolism; Z90.710 Acquired absence of both cervix and uterus; Z86.711 Personal history of pulmonary embolism; Z86.73 Personal history of transient ischemic attack (TIA), and cerebral infarction without residual deficits
CPT/HCPCS: 15271; 97597; A6209; A6222; Q4101; A6250; A6446

== ENCOUNTER 2018-07-08 10:00 | Outpatient (CLI) | payer MEDICARE, MEDICAID ==
--- NOTE | 2018-07-08 12:00 | NUR ---
Patient ambulated with walker accompanied by caregiver from [facility] and was admitted to outpatient wound care for physician visit with Fan Alberto MD. Dressing removed, wound cleansed and lidocaine applied per order. Patient assessed for changes in conditions, medications and medical history. 1120 - Dr. Alberto at bedside accompanied by RN. Wound assessed by MD, orders written. Plan of care discussed with patient. Dressings placed per MD orders. Patient instructed on the signs and symptoms of infection and to call the Wound Center if any occur or to go to the ED if we are closed: Increased pain in wound Increase in drainage from the wound Redness in the skin surrounding the wound Bleeding from the wound Temperature of 101 or greater Patient instructed that the weight of their body puts a large amount of pressure on their wounds. This pressure keeps the new tissue from growing and inhibits new blood vessels from forming. Explained that, if they continue to bear weight on a body part that has a wound, the time it takes to heal the wound increases, the wound may get worse or the wound may not heal at all. Patient verbalized understanding of all discharge instructions and plan of care and ambulated with walker accompanied by caregiver out to [facility] in stable condition with no sign or symptom of distress at time of discharge.
[2018-07-08] MEDS ORDERED: IBUP-1985 PO (14:55)
== END 2018-07-08 11:50 | disposition home or self-care (01) ==
LOC: WOUND CARE 10:00 → EDSTATUS 10:00 → WOUND CARE 11:50
PROVIDERS: ATTEND Surgery
DX: E11.622 Type 2 diabetes mellitus with other skin ulcer (principal); I70.242 Atherosclerosis of native arteries of left leg with ulceration of calf; L97.221 Non-pressure chronic ulcer of left calf limited to breakdown of skin; L97.822 Non-pressure chronic ulcer of other part of left lower leg with fat layer exposed; I77.1 Stricture of artery; J44.1 Chronic obstructive pulmonary disease with (acute) exacerbation; I25.10 Atherosclerotic heart disease of native coronary artery without angina pectoris; K21.9 Gastro-esophageal reflux disease without esophagitis; I11.0 Hypertensive heart disease with heart failure; I50.9 Heart failure, unspecified; I48.2 Chronic atrial fibrillation; F17.210 Nicotine dependence, cigarettes, uncomplicated; Z86.718 Personal history of other venous thrombosis and embolism; Z90.710 Acquired absence of both cervix and uterus; Z86.711 Personal history of pulmonary embolism; Z86.73 Personal history of transient ischemic attack (TIA), and cerebral infarction without residual deficits
CPT/HCPCS: A6021; A6206; A6446; G0463

== ENCOUNTER 2018-07-15 10:00 | Outpatient (CLI) | payer MEDICARE, MEDICAID ==
[~2018-07-15 10:00] MED LIST changes: +IBUP-1985 PO
[2018-07-15] MEDS ORDERED: LIDOcaine/PRILOcaine 5gm cream TP ONE (10:56)
--- NOTE | 2018-07-15 16:05 | NUR ---
Patient ambulated independently from lobby with a walker. Patient admitted to outpatient wound care for physician visit with Fan Alberto MD. Dressing removed, wound cleansed and Emla cream applied per order. Patient assessed for changes in conditions, medications and medical history. Dr. Alberto at bedside accompanied by RN. Wound assessed and no debridement was done. Plan of care discussed with patient. Dressings placed per MD orders. Patient instructed on the signs and symptoms of infection and to call the Wound Center if any occur or to go to the ED if we are closed: Increased pain in wound Increase in drainage from the wound Redness in the skin surrounding the wound Bleeding from the wound Temperature of 101 or greater Patient instructed that the weight of their body puts a large amount of pressure on their wounds. This pressure keeps the new tissue from growing and inhibits new blood vessels from forming. Explained that, if they continue to bear weight on a body part that has a wound, the time it takes to heal the wound increases, the wound may get worse or the wound may not heal at all. Patient verbalized understanding of all discharge instructions and plan of care and ambulated independently with walker out to lobby in stable condition with no sign or symptom of distress at time of discharge. Addendum: 07/15/18 at 1608 by Joyce Moses RN Amended: Links added.
== END 2018-07-15 11:27 | disposition home or self-care (01) ==
LOC: EDSTATUS 10:00 → WOUND CARE 10:00
PROVIDERS: ATTEND Surgery
DX: E11.622 Type 2 diabetes mellitus with other skin ulcer (principal); I70.242 Atherosclerosis of native arteries of left leg with ulceration of calf; I83.022 Varicose veins of left lower extremity with ulcer of calf; L97.221 Non-pressure chronic ulcer of left calf limited to breakdown of skin; L97.822 Non-pressure chronic ulcer of other part of left lower leg with fat layer exposed; I77.1 Stricture of artery; J44.1 Chronic obstructive pulmonary disease with (acute) exacerbation; I25.10 Atherosclerotic heart disease of native coronary artery without angina pectoris; K21.9 Gastro-esophageal reflux disease without esophagitis; I11.0 Hypertensive heart disease with heart failure; I50.9 Heart failure, unspecified; I48.2 Chronic atrial fibrillation; F17.210 Nicotine dependence, cigarettes, uncomplicated; Z86.718 Personal history of other venous thrombosis and embolism; Z90.710 Acquired absence of both cervix and uterus; Z86.711 Personal history of pulmonary embolism; Z86.73 Personal history of transient ischemic attack (TIA), and cerebral infarction without residual deficits
CPT/HCPCS: A6223; G0463; A6021; A6446

== ENCOUNTER 2018-07-23 10:00 | Day surgery (SDC) | payer MEDICARE, MEDICAID ==
[2018-07-23] MEDS ORDERED: LIDOcaine/PRILOcaine 5gm cream TP ONE (11:15)
--- NOTE | 2018-07-23 12:30 | NUR ---
Patient ambulated with walker accompanied by caregiver from [facility] and was admitted to outpatient wound care for physician visit with Fan Alberto MD. Dressing removed, wound cleansed and Emla cream applied per order. Patient assessed for changes in conditions, medications and medical history. 1200 - Dr. Alberto at bedside accompanied by RN. Wound assessed, time out performed by MD/RN. Wound debrided as detailed in the physician progress/procedure note. Plan of care discussed with patient. Dressings placed per MD orders. Patient instructed on the signs and symptoms of infection and to call the Wound Center if any occur or to go to the ED if we are closed: Increased pain in wound Increase in drainage from the wound Redness in the skin surrounding the wound Bleeding from the wound Temperature of 101 or greater Patient instructed that the weight of their body puts a large amount of pressure on their wounds. This pressure keeps the new tissue from growing and inhibits new blood vessels from forming. Explained that, if they continue to bear weight on a body part that has a wound, the time it takes to heal the wound increases, the wound may get worse or the wound may not heal at all. Patient verbalized understanding of all discharge instructions and plan of care and ambulated with walker accompanied by caregiver out to [facility] in stable condition with no sign or symptom of distress at time of discharge.
== END 2018-07-23 12:23 | disposition home or self-care (01) ==
LOC: WOUND CARE 10:00
PROVIDERS: ATTEND Surgery
DX: E11.622 Type 2 diabetes mellitus with other skin ulcer (principal); I70.242 Atherosclerosis of native arteries of left leg with ulceration of calf; I83.022 Varicose veins of left lower extremity with ulcer of calf; L97.221 Non-pressure chronic ulcer of left calf limited to breakdown of skin; L97.822 Non-pressure chronic ulcer of other part of left lower leg with fat layer exposed; I77.1 Stricture of artery; J44.1 Chronic obstructive pulmonary disease with (acute) exacerbation; I25.10 Atherosclerotic heart disease of native coronary artery without angina pectoris; K21.9 Gastro-esophageal reflux disease without esophagitis; I11.0 Hypertensive heart disease with heart failure; I50.9 Heart failure, unspecified; I48.2 Chronic atrial fibrillation; F17.210 Nicotine dependence, cigarettes, uncomplicated; Z86.718 Personal history of other venous thrombosis and embolism; Z90.710 Acquired absence of both cervix and uterus; Z86.711 Personal history of pulmonary embolism; Z86.73 Personal history of transient ischemic attack (TIA), and cerebral infarction without residual deficits
CPT/HCPCS: 87070; 87075; 87077; 87102; 87186; 97597; A6222; A6021

== ENCOUNTER 2018-07-29 10:00 | Day surgery (SDC) | payer MEDICARE, MEDICAID ==
[2018-07-29] MEDS ORDERED: LIDOcaine/PRILOcaine 5gm cream TP ONE (11:01)
--- NOTE | 2018-07-29 11:30 | NUR ---
Patient ambulated with walker from [facility] and was admitted to outpatient wound care for physician visit with Fan Alberto MD. Dressing removed, wound cleansed and Emla cream applied per order. Patient assessed for changes in conditions, medications and medical history. 1100 - Dr. Alberto at bedside accompanied by RN. Wound assessed, time out performed by MD/RN. Wound debrided and procedure performed as detailed in the physician progress/procedure note. Plan of care discussed with patient. Dressings placed per MD orders. Patient instructed on the signs and symptoms of infection and to call the Wound Center if any occur or to go to the ED if we are closed: Increased pain in wound Increase in drainage from the wound Redness in the skin surrounding the wound Bleeding from the wound Temperature of 101 or greater Patient instructed that the weight of their body puts a large amount of pressure on their wounds. This pressure keeps the new tissue from growing and inhibits new blood vessels from forming. Explained that, if they continue to bear weight on a body part that has a wound, the time it takes to heal the wound increases, the wound may get worse or the wound may not heal at all. Patient verbalized understanding of all discharge instructions and plan of care and ambulated with walker out to [facility] in stable condition with no sign or symptom of distress at time of discharge.
== END 2018-07-29 13:30 | disposition home or self-care (01) ==
LOC: WOUND CARE 10:00
PROVIDERS: ATTEND Surgery
DX: E11.622 Type 2 diabetes mellitus with other skin ulcer (principal); I70.242 Atherosclerosis of native arteries of left leg with ulceration of calf; I83.022 Varicose veins of left lower extremity with ulcer of calf; L97.221 Non-pressure chronic ulcer of left calf limited to breakdown of skin; L97.822 Non-pressure chronic ulcer of other part of left lower leg with fat layer exposed; I77.1 Stricture of artery; J44.1 Chronic obstructive pulmonary disease with (acute) exacerbation; I25.10 Atherosclerotic heart disease of native coronary artery without angina pectoris; K21.9 Gastro-esophageal reflux disease without esophagitis; I11.0 Hypertensive heart disease with heart failure; I50.9 Heart failure, unspecified; I48.2 Chronic atrial fibrillation; F17.210 Nicotine dependence, cigarettes, uncomplicated; Z86.718 Personal history of other venous thrombosis and embolism; Z90.710 Acquired absence of both cervix and uterus; Z86.711 Personal history of pulmonary embolism; Z86.73 Personal history of transient ischemic attack (TIA), and cerebral infarction without residual deficits
CPT/HCPCS: 15271; 97597; A6222; Q4101; A6021; A6206; A6250; A6446